=== PATIENT | male | born 1995 | race Caucasian/White ===

== ENCOUNTER 2019-09-22 07:48 | Emergency (ER) | payer MEDICAID ==
[~2019-09-22] VITALS: Ht 180.3 cm; Wt 131.1 kg
[2019-09-22 07:59] VITALS: Ht 180.3 cm; Wt 131.1 kg
[2019-09-22 08:17] VITALS: BP 153/103
== END 2019-09-22 09:05 | disposition home or self-care (01) ==
LOC: ED 07:48
DX: H60.92 Unspecified otitis externa, left ear (principal); Z88.0 Allergy status to penicillin

== ENCOUNTER 2019-09-23 23:38 | Emergency (ER) | payer MEDICAID ==
[~2019-09-23] VITALS: Ht 180.3 cm; Wt 130.6 kg
[2019-09-23 23:43] VITALS: BP 163/113; Ht 180.3 cm; Wt 130.6 kg
== END 2019-09-24 00:45 | disposition home or self-care (01) ==
LOC: ED 23:38
DX: H60.92 Unspecified otitis externa, left ear (principal); Z88.0 Allergy status to penicillin